=== PATIENT | female | born 1975 | race Caucasian/White ===

== ENCOUNTER 2017-06-19 00:08 | Emergency (ER) | payer SELFPAY | END 2017-06-19 06:31 | disposition left against medical advice (07) | LOC: FTE 06:31 | DX: Z53.21 Procedure and treatment not carried out due to patient leaving prior to being seen by health care provider (principal) ==

== ENCOUNTER 2017-07-18 00:01 | Emergency (ER) | payer SELFPAY ==
[2017-07-18] MEDS: DIPHENHYDRAMINE 50 MG INJ IV (04:29)
[2017-07-18] MEDS: KETOROLAC 15 MG INJ IV (04:29)
[2017-07-18] MEDS: METOCLOPRAMIDE 10 MG INJ IV (04:29)
[2017-07-18] MEDS: SOD CHLORIDE 0.9% 1,000 ML IV (04:30)
[2017-07-18 05:10] LABS: ADD MAN DIFF? NO
[2017-07-18 05:15] LABS: WHITE BLOOD COUNT 9.1 10^3/ul (4.8-10.8)
[2017-07-18 05:15] LABS: BASOPHIL # 0.1 10^3/ul (0.0-0.1); BASOPHILS % 0.9 % (0.0-2.0); EOSINOPHILS # 0.2 10^3/ul (0.0-0.5); EOSINOPHILS % 2.4 % (0.0-7.0); HEMATOCRIT 40.5 % (37.0-47.0); HEMOGLOBIN 13.4 g/dl (12.0-16.0); LYMPHOCYTES # 3.2 10^3/ul (0.8-2.9); LYMPHOCYTES % 35.5 % (15.0-51.0); MEAN CORPUSCULAR HEMOGLOBIN 28.9 pg (29.0-33.0); MEAN CORPUSCULAR HGB CONC 33.1 g/dl (32.0-37.0); MEAN CORPUSCULAR VOLUME 87.3 fl (82.0-101.0); MEAN PLATELET VOLUME 9.7 fl (7.4-10.4); MONOCYTE # 0.6 10^3/ul (0.3-0.9); MONOCYTES % 6.6 % (0.0-11.0); NEUTROPHIL # 4.9 10^3/ul (1.6-7.5); NEUTROPHILS % 54.3 % (39.0-77.0); PLATELET COUNT 371 10^3/UL (140-415); RED BLOOD COUNT 4.64 10^6/ul (4.20-5.40); RED CELL DISTRIBUTION WIDTH 12.3 % (11.5-14.5)
[2017-07-18 05:31] LABS: ALANINE AMINOTRANSFERASE 32 IU/L (13-69); ALBUMIN 4.5 g/dl (3.3-4.9); ALBUMIN/GLOBULIN RATIO 1.32; ALKALINE PHOSPHATASE 87 IU/L (42-121); ANION GAP 17 (8-16); ASPARTATE AMINO TRANSFERASE 28 IU/L (15-46); BLOOD UREA NITROGEN 15 mg/dl (7-20); CALCIUM 9.9 mg/dl (8.4-10.2); CARBON DIOXIDE 30 mmol/L (21-31); CHLORIDE 102 mmol/L (97-110); CREATININE 0.62 mg/dl (0.44-1.00); GLUCOSE 118 mg/dl (70-220); LIPASE 151 U/L (23-300); POTASSIUM 3.8 mmol/L (3.5-5.1); SODIUM 145 mmol/L (135-144); TOTAL PROTEIN 7.9 g/dl (6.1-8.1)
[2017-07-18 05:53] LABS: ADD UMIC YES; UR ASCORBIC ACID NEGATIVE (NEGATIVE); UR BACTERIA FEW /HPF (NONE SEEN); UR BILIRUBIN (Dip) NEGATIVE (NEGATIVE); UR BLOOD (Dip) 2+ mg/dL (NEGATIVE); UR CLARITY SLIGHTLY CLOUDY (CLEAR); UR COLOR YELLOW (YELLOW); UR GLUCOSE (Dip) NEGATIVE (NEGATIVE); UR KETONES (Dip) NEGATIVE (NEGATIVE); UR LEUKOCYTE ESTERASE (Dip) TRACE Leu/ul (NEGATIVE); UR NITRITE (Dip) POSITIVE (NEGATIVE); UR RBC 7 /HPF (0-5); UR SPECIFIC GRAVITY (Dip) 1.016 (1.003-1.030); UR SQUAMOUS EPITHELIAL CELL FEW /HPF (FEW); UR TOTAL PROTEIN (Dip) NEGATIVE (NEGATIVE); UR UROBILINOGEN (Dip) NEGATIVE (NEGATIVE); UR WBC 21 /HPF (0-5)
== END 2017-07-18 07:20 | disposition home or self-care (01) ==
LOC: FTE 00:01
DX: N30.01 Acute cystitis with hematuria (principal)
CPT/HCPCS: 36415; 80053; 81001; 81025; 83690; 85025; 96374; 96375; 99284-25

== ENCOUNTER 2017-11-15 00:11 | Emergency (ER) | payer SELFPAY ==
[2017-11-15] MEDS ORDERED: ONDANSETRON (ODT) 4 MG TAB ODT (00:39)
[2017-11-15] MEDS ORDERED: FAMOTIDINE 20 MG TAB PO (00:39)
[2017-11-15] MEDS: LIDOCAINE/MYLANTA 40 ML BTL PO (01:01)
[2017-11-15] MEDS: SOD CHLORIDE 0.9% 500 ML IV (01:01)
[2017-11-15] MEDS: FAMOTIDINE 20 MG INJ IV (01:01)
[2017-11-15] MEDS: ONDANSETRON 4 MG INJ IV (01:01)
[2017-11-15] MEDS: BELLADONNA/PHENOBARBITAL TAB PO (01:02)
[2017-11-15 01:05] LABS: ADD MAN DIFF? NO
[2017-11-15 01:07] LABS: WHITE BLOOD COUNT 8.6 10^3/ul (4.8-10.8)
[2017-11-15 01:07] LABS: BASOPHIL # 0.1 10^3/ul (0.0-0.1); BASOPHILS % 0.7 % (0.0-2.0); EOSINOPHILS # 0.1 10^3/ul (0.0-0.5); EOSINOPHILS % 1.5 % (0.0-7.0); HEMATOCRIT 39.7 % (37.0-47.0); HEMOGLOBIN 13.5 g/dl (12.0-16.0); LYMPHOCYTES # 3.3 10^3/ul (0.8-2.9); MEAN CORPUSCULAR HEMOGLOBIN 29.2 pg (29.0-33.0); MEAN CORPUSCULAR VOLUME 85.9 fl (82.0-101.0); MEAN PLATELET VOLUME 9.5 fl (7.4-10.4); MONOCYTE # 0.7 10^3/ul (0.3-0.9); MONOCYTES % 8.1 % (0.0-11.0); NEUTROPHIL # 4.4 10^3/ul (1.6-7.5); NEUTROPHILS % 51.5 % (39.0-77.0); PLATELET COUNT 335 10^3/UL (140-415); RED BLOOD COUNT 4.62 10^6/ul (4.20-5.40)
[2017-11-15 01:27] LABS: ADD UMIC YES; UR ASCORBIC ACID NEGATIVE (NEGATIVE); UR BACTERIA FEW /HPF (NONE SEEN); UR BILIRUBIN (Dip) NEGATIVE (NEGATIVE); UR BLOOD (Dip) 2+ mg/dL (NEGATIVE); UR CLARITY SLIGHTLY CLOUDY (CLEAR); UR COLOR YELLOW (YELLOW); UR GLUCOSE (Dip) NEGATIVE (NEGATIVE); UR KETONES (Dip) NEGATIVE (NEGATIVE); UR LEUKOCYTE ESTERASE (Dip) 2+ Leu/ul (NEGATIVE); UR MUCUS FEW /HPF (NONE SEEN); UR NITRITE (Dip) POSITIVE (NEGATIVE); UR RBC 16 /HPF (0-5); UR SPECIFIC GRAVITY (Dip) 1.023 (1.003-1.030); UR SQUAMOUS EPITHELIAL CELL FEW /HPF (FEW); UR TOTAL PROTEIN (Dip) NEGATIVE (NEGATIVE); UR UROBILINOGEN (Dip) NEGATIVE (NEGATIVE); UR WBC 71 /HPF (0-5)
[2017-11-15 01:31] LABS: ALANINE AMINOTRANSFERASE 19 IU/L (13-69); ALBUMIN 4.5 g/dl (3.3-4.9); ALBUMIN/GLOBULIN RATIO 1.25; ALKALINE PHOSPHATASE 73 IU/L (42-121); ANION GAP 15 (8-16); ASPARTATE AMINO TRANSFERASE 28 IU/L (15-46); BILIRUBIN,INDIRECT 0.3 mg/dl (0-1.1); BILIRUBIN,TOTAL 0.3 mg/dl (0.2-1.3); BLOOD UREA NITROGEN 11 mg/dl (7-20); CALCIUM 9.8 mg/dl (8.4-10.2); CARBON DIOXIDE 28 mmol/L (21-31); CHLORIDE 102 mmol/L (97-110); CREATININE 0.72 mg/dl (0.44-1.00); GLUCOSE 118 mg/dl (70-220); LIPASE 166 U/L (23-300); POTASSIUM 3.8 mmol/L (3.5-5.1); SODIUM 141 mmol/L (135-144); TOTAL PROTEIN 8.1 g/dl (6.1-8.1)
== END 2017-11-15 02:54 | disposition home or self-care (01) ==
LOC: E/R 00:11
DX: N30.01 Acute cystitis with hematuria (principal); R11.2 Nausea with vomiting, unspecified; K70.0 Alcoholic fatty liver
CPT/HCPCS: 36415; 76705; 80053; 81001; 83690; 85025; 96374; 96375; 99285-25

== ENCOUNTER 2017-12-05 02:30 | Inpatient (IN) | payer SELFPAY ==
[2017-12-05 04:50] LABS: ADD MAN DIFF? NO
[2017-12-05 04:53] LABS: BASOPHIL # 0.1 10^3/ul (0.0-0.1); BASOPHILS % 0.8 % (0.0-2.0); EOSINOPHILS # 0.2 10^3/ul (0.0-0.5); EOSINOPHILS % 1.6 % (0.0-7.0); HEMATOCRIT 39.4 % (37.0-47.0); HEMOGLOBIN 13.2 g/dl (12.0-16.0); LYMPHOCYTES # 3.9 10^3/ul (0.8-2.9); LYMPHOCYTES % 37.9 % (15.0-51.0); MEAN CORPUSCULAR HEMOGLOBIN 28.9 pg (29.0-33.0); MEAN CORPUSCULAR HGB CONC 33.5 g/dl (32.0-37.0); MEAN CORPUSCULAR VOLUME 86.4 fl (82.0-101.0); MEAN PLATELET VOLUME 10.1 fl (7.4-10.4); MONOCYTE # 0.8 10^3/ul (0.3-0.9); MONOCYTES % 8.2 % (0.0-11.0); NEUTROPHIL # 5.2 10^3/ul (1.6-7.5); NEUTROPHILS % 51.3 % (39.0-77.0); PLATELET COUNT 322 10^3/UL (140-415); RED BLOOD COUNT 4.56 10^6/ul (4.20-5.40); RED CELL DISTRIBUTION WIDTH 12.4 % (11.5-14.5)
[2017-12-05 04:53] LABS: WHITE BLOOD COUNT 10.2 10^3/ul (4.8-10.8)
[2017-12-05 05:20] LABS: CHOLESTEROL 221 mg/dl (100-200)
[2017-12-05 05:20] LABS: CHOL/HDL RATIO 4.9 RATIO; CREATINE KINASE 98 IU/L (23-200); HDL CHOLESTEROL 45 mg/dl (34-88); LDL CHOLESTEROL,CALCULATED 109 mg/dl; TRIGLYCERIDES 337 mg/dl (0-149)
[2017-12-05 05:21] LABS: ANION GAP 13 (8-16); BLOOD UREA NITROGEN 11 mg/dl (7-20); CALCIUM 9.8 mg/dl (8.4-10.2); CARBON DIOXIDE 25 mmol/L (21-31); CHLORIDE 105 mmol/L (97-110); CREATININE 0.74 mg/dl (0.44-1.00); ETHANOL < 10.0 mg/dl; GLUCOSE 120 mg/dl (70-220); PARTIAL THROMBOPLASTIN TIME 26.4 Sec (25.0-35.0); POTASSIUM 3.9 mmol/L (3.5-5.1); SODIUM 139 mmol/L (135-144)
[2017-12-05] MEDS: SOD CHLORIDE 0.9% 100 ML (05:24)
[2017-12-05] MEDS: IOHEXOL 100 ML (05:24)
[2017-12-05 05:25] LABS: INR 0.91; PROTIME 12.3 Sec (11.9-14.9)
[2017-12-05 05:31] LABS: HEMOGLOBIN A1C 5.7 % (0-5.9)
[2017-12-05 05:32] LABS: CK INDEX 0.3; CK-MB 0.34 ng/ml (0.0-2.4); TROPONIN-I < 0.012 ng/ml (0.000-0.120)
[2017-12-05 05:37] LABS: TROPONIN-I < 0.012 ng/ml (0.000-0.120)
[2017-12-05] MEDS ORDERED: ONDANSETRON 4 MG INJ IV ×2 (06:30→09:30)
[2017-12-05] MEDS ORDERED: ACETAMINOPHEN 325 MG TAB PO (06:30)
[2017-12-05 07:13] LABS: ADD UMIC YES; UR ASCORBIC ACID NEGATIVE (NEGATIVE); UR BACTERIA FEW /HPF (NONE SEEN); UR BILIRUBIN (Dip) NEGATIVE (NEGATIVE); UR BLOOD (Dip) 1+ mg/dL (NEGATIVE); UR CLARITY CLEAR (CLEAR); UR COLOR COLORLESS (YELLOW); UR GLUCOSE (Dip) NEGATIVE (NEGATIVE); UR KETONES (Dip) NEGATIVE (NEGATIVE); UR LEUKOCYTE ESTERASE (Dip) NEGATIVE Leu/ul (NEGATIVE); UR NITRITE (Dip) NEGATIVE (NEGATIVE); UR RBC 0 /HPF (0-5); UR SPECIFIC GRAVITY (Dip) 1.012 (1.003-1.030); UR TOTAL PROTEIN (Dip) NEGATIVE (NEGATIVE); UR UROBILINOGEN (Dip) NEGATIVE (NEGATIVE); UR WBC 0 /HPF (0-5)
[2017-12-05] MEDS: DIPHENHYDRAMINE 50 MG INJ IV (07:17)
[2017-12-05] MEDS: METOCLOPRAMIDE 10 MG INJ IV (07:17)
[2017-12-05] MEDS ORDERED: MAGNESIUM HYDROXIDE 30ML CUP PO (09:30)
[2017-12-05] MEDS ORDERED: HYDROCODONE/APAP (5/325) TAB PO (09:30)
[2017-12-05] MEDS ORDERED: morphine 2 MG INJ IV (09:30)
[2017-12-05] MEDS ORDERED: ZOLPIDEM 5 MG TAB PO (09:30)
[2017-12-05] MEDS ORDERED: NACL 0.9% 3 ML SYG IV (09:30)
[2017-12-05] MEDS ORDERED: DOCUSATE SODIUM 100 MG CAP PO (09:30)
[2017-12-05] MEDS ORDERED: NITROGLYCERIN (SL) 0.4 MG TAB SL (09:30)
[2017-12-05 12:42] LABS: TROPONIN-I < 0.012 ng/ml (0.000-0.120)
[2017-12-05] MEDS: ACETAMINOPHEN 325 MG TAB PO (12:55)
[2017-12-05 15:57] LABS: AMPHETAMINE/METHAMPHETAMINE Negative (NEGATIVE); BARBITURATES Negative (NEGATIVE); BENZODIAZEPINES Negative (NEGATIVE); COCAINE Negative (NEGATIVE); OPIATES Negative (NEGATIVE)
[2017-12-05 17:01] LABS: CANNABINOIDS Negative (NEGATIVE)
[2017-12-07] MEDS ORDERED: ASPIRIN 81 MG TAB PO (09:00)
== END 2017-12-05 13:59 | disposition home or self-care (01) | DRG 313 ==
LOC: E/R 02:30 → MS3 06:19
DX: R07.89 Other chest pain (principal); R51 Headache; M62.81 Muscle weakness (generalized); F41.9 Anxiety disorder, unspecified
CPT/HCPCS: 36415; 70450; 70496; 70498; 71045; 80048; 80061; 80307; 81001; 81025; 82550; 82553; 82962; 83036; 84484; 84703; 85025; 85610; 85651; 85730; 93005; 99291-25